=== PATIENT | female | born 1965 | race Caucasian/White ===

== ENCOUNTER → 2017-01-22 | Outpatient (CLI) | payer BC ==
[~2017-01-22] MED LIST: ACET-1256 PO; ASCO1CAP3 PO; ASPEC81 PO; ATOR-24 PO; CLC100 PO; CLS1 PO; DORZ2SOL20 OP; FLUT0.15 NAE; FLX10 PO; GLC850 PO; LATA0.5S OP; LOSA1TAB PO; MECL1TAB42 PO; MELO7.5T5 PO; OMEG10007 PO; ONDA4TAB46 PO; PSYL55.43 PO; SIMV20TA2 PO; SPIR50TA2 PO; VNTHFA/IN INH
== END | disposition home or self-care (01) ==
LOC: C.PATHSPEC 17:45
PROVIDERS: ATTEND Dermatology
DX: L91.8 Other hypertrophic disorders of the skin (principal)

== ENCOUNTER 2017-03-02 10:57 | Observation (INO) | payer BC, SELFPAY ==
[2017-02-25 09:24] VITALS: BMI 27.0
--- NOTE | 2017-02-25 09:55 | PAT Medication Instructions ---
Service Date February 25, 2017. Current Home Medication List Acetaminophen (Tylenol), 1,000 MG PO PRN Albuterol Hfa (Ventolin Hfa), 2-4 PUFFS INH Q6H Ascorbic Acid (Vitamin C), 500 MG PO QAM Aspirin Enteric Coated (Ecotrin Or Generic *), 81 MG PO QPM Atorvastatin (Lipitor), 40 MG PO HS Cyclobenzaprine Hcl (Flexeril *), 10 MG PO HS PRN for SPASMS Dorzolamide Hcl-Timolol Maleat (Cosopt Oph), 1 DROPS OP BID Fluticasone Propionate (Nasal) (Flonase Allergy Relief), 2 SPRAYS AGUSTIN QAM Latanoprost (Xalatan 0.005% Oph Rosita), 1 DROPS OP HS Losartan Potassium (Cozaar), 12.5 MG PO QAM Meclizine Hcl (Meclizine Hcl), 1 TAB PO PRN Meloxicam (Mobic), 7.5 MG PO QAM Metformin Hcl (Glucophage *), 850 MG PO BID Ondansetron Hcl (Zofran), 4 MG PO PRN\ PRN for Nausea Spironolactone (Aldactone), 50 MG PO QPM Medication Instructions For Your Scheduled Surgery Aspirin Enteric Coated (Ecotrin Or Generic *), 81 MG PO QPM (check with surgeon/ prescribing physician for instructions) Meloxicam (Mobic), 7.5 MG PO QAM (check with surgeon for instructions) - Hold the following medications 48 hours prior to surgery: Metformin Hcl (Glucophage *), 850 MG PO BID - Hold the following medications the morning of surgery: Losartan Potassium (Cozaar), 12.5 MG PO QAM Cyclobenzaprine Hcl (Flexeril *), 10 MG PO HS PRN for SPASMS Ascorbic Acid (Vitamin C), 500 MG PO QAM - Take the following medications the morning of surgery with a sip of water: Ondansetron Hcl (Zofran), 4 MG PO PRN\ PRN for Nausea (if needed) Meclizine Hcl (Meclizine Hcl), 1 TAB PO PRN (if needed) Fluticasone Propionate (Nasal) (Flonase Allergy Relief), 2 SPRAYS AGUSTIN QAM Dorzolamide Hcl-Timolol Maleat (Cosopt Oph), 1 DROPS OP BID Acetaminophen (Tylenol), 1,000 MG PO PRN (if needed) Albuterol Hfa (Ventolin Hfa), 2-4 PUFFS INH Q6H (bring with you to hospital morning of surgery; use if needed) - Take the following medications as scheduled the night before surgery: Spironolactone (Aldactone), 50 MG PO QPM Ondansetron Hcl (Zofran), 4 MG PO PRN\ PRN for Nausea (if needed) Meclizine Hcl (Meclizine Hcl), 1 TAB PO PRN (if needed) Latanoprost (Xalatan 0.005% Oph Rosita), 1 DROPS OP HS Dorzolamide Hcl-Timolol Maleat (Cosopt Oph), 1 DROPS OP BID Cyclobenzaprine Hcl (Flexeril *), 10 MG PO HS PRN for SPASMS (if needed) Atorvastatin (Lipitor), 40 MG PO HS Acetaminophen (Tylenol), 1,000 MG PO PRN (if needed) Albuterol Hfa (Ventolin Hfa), 2-4 PUFFS INH Q6H (if needed) If you have any questions please call us at [phone] or [phone] or [phone]
[~2017-03-02] VITALS: Ht 175.3 cm; Wt 85.9 kg
[2017-03-02] VITALS (10 sets, daily range): BP systolic 119–160; BP diastolic 70–83; PULSE 52–63; TEMP 36.4–37.6; O2SAT 97–100; BMI 27.0; BMI 28.0
[~2017-03-02 10:57] MED LIST changes: +CEFAZOLIN 2000 MG/60 ML D5W IV SCH; -CLC100 PO; -CLS1 PO; +ENOXAPARIN 40 MG/0.4 ML SYR SQ SCH; +LACTATED RINGER'S 1000ML 1,000 ML IV SCH; -OMEG10007 PO; -PSYL55.43 PO; -SIMV20TA2 PO
--- NOTE | 2017-03-02 11:36 | History & Physical Bridge Note ---
H&P Re-Evaluation Bridge Note: I have examined the patient, reviewed the History & Physical and in the interval since the performance of the History & Physical I have noted the following changes of clinical significance: No changes noted
[2017-03-02] MEDS ORDERED: PROPOFOL IV EMULSION 10 MG/ML 20 ML VIAL IV ONE (11:41)
[2017-03-02] MEDS ORDERED: DEXAMETHASONE SOD INJ 4 MG/ML VIAL ONE (11:41)
[2017-03-02] MEDS ORDERED: ONDANSETRON INJ 2 MG/ML 2 ML VIAL ONE ×2 (11:41→14:14)
[2017-03-02] MEDS ORDERED: LIDOCAINE HCL 2% 2 ML VIAL (20MG/ML) ONE (11:41)
[2017-03-02] MEDS ORDERED: HYDROmorphone INJ 2 MG/ML SYR/VIAL ONE (11:42)
[2017-03-02] MEDS ORDERED: MIDAZOLAM HCL 1 MG/ML 2ML VIAL ONE (11:42)
[2017-03-02] MEDS ORDERED: FENTANYL CITRATE INJ 50 MCG/1 ML 2 ML VIAL ONE (11:42)
[2017-03-02] MEDS ORDERED: LIDOCAINE/EPINEPHRINE 1% 20 ML VIAL ONE (12:07)
[2017-03-02] MEDS ORDERED: LIDOCAINE HCL 1% 20 ML VIAL ONE (12:07)
[2017-03-02] MEDS ORDERED: BUPIVACAINE 0.5 % 5 MG/1 ML MPF 30ML VIAL ONE (12:08)
[2017-03-02] MEDS ORDERED: EpINEphrine INJ 1MG/ML AMP 1 MG/ML AMP ONE (12:08)
[2017-03-02] MEDS ORDERED: ACETAMINOPHEN 1000 MG/100 ML IV IV ONE (12:28)
[2017-03-02] MEDS ORDERED: EpHEDrine SULFATE INJ 50 MG/ML AMP IV PRN (12:45)
[2017-03-02] MEDS ORDERED: ATROPINE SULFATE 0.1 MG/ML 5ML SYR IV PRN (12:45)
[2017-03-02] MEDS ORDERED: ONDANSETRON INJ 2 MG/ML 2 ML VIAL IV PRN ×2 (12:45→15:30)
[2017-03-02] MEDS ORDERED: PHENYLEPHRINE 100MCG/ML 5ML SYR IV PRN (12:45)
[2017-03-02] MEDS ORDERED: HYDROmorphone INJ 2 MG/ML SYR/VIAL IV PRN (12:45)
[2017-03-02] MEDS ORDERED: DiphenhydrAMINE HCL 50 MG/ML VIAL ONE (13:06)
[2017-03-02] MEDS ORDERED: ROCURONIUM BROMIDE 10 MG/ML 5 ML VIAL ONE (13:06)
[2017-03-02] MEDS ORDERED: BUPIVACAINE 0.25% 30 ML VIAL ONE ×3 (13:07→13:25)
--- NOTE | 2017-03-02 15:24 | [facility] Post Operative Brief Note ---
Immediate Operative Summary Operative Date Mar 02, 2017. Pre-Operative Diagnosis Abdominal Pannus Post-Operative Diagnosis same Procedure(s) Performed Panniculectomy Surgeon Natali Hyatt Card Tape Converter Operator Surgeon(s) Suzy Cunha PA-C Estimated Blood Loss 50 ML Findings small fascial weakness right abdomen Specimens NONE PER SURGEON Drains JPx2 Anesthesia GET Complication(s) None Disposition Recovery Room / PACU
[2017-03-02] MEDS ORDERED: MoRPHine SULFATE 2 MG/ML CARP IV PRN ×3 (15:30)
[2017-03-02] MEDS ORDERED: PROMETHAZINE HCL INJ 12.5 MG in SODIUM CHLORIDE 0.9% 50ML 50 ML IV PRN (15:30)
[2017-03-02] MEDS ORDERED: OXYCODONE/ACETAMINOPHEN 5-325 TAB PO PRN (15:30)
[2017-03-02] MEDS ORDERED: ACETAMINOPHEN 325 MG TAB PO PRN (15:30)
[2017-03-02] MEDS ORDERED: DiphenhydrAMINE HCL 50 MG/ML VIAL IV PRN (15:30)
[2017-03-02] MEDS ORDERED: CYCLOBENZAPRINE HCL 10 MG TAB PO PRN (15:30)
[2017-03-02] MEDS ORDERED: MECLIZINE HCL 12.5 MG TAB PO PRN (15:30)
[2017-03-02] MEDS ORDERED: OXAZEPAM 10MG CAP PO PRN (15:30)
[2017-03-02] MEDS ORDERED: IV FLUIDS COMPLETED PRN (16:00)
--- NOTE | 2017-03-02 16:03 | Anesthesiology Progress Note ---
Anesthesia Post Op Note Date & Time Mar 02, 2017 at 16:03 Vital Signs Pain Intensity: 4 Vital Signs Past 12 Hours Date Time Temp Pulse Resp B/P (MAP) Pulse Ox O2 Delivery O2 Flow Rate FiO2 03/02/17 15:45 56 13 153/77 99 Nasal Cannula 2 03/02/17 15:35 55 15 148/79 98 Nasal Cannula 2 03/02/17 15:26 36.7 56 14 165/81 98 Nasal Cannula 2 03/02/17 11:05 36.6 54 18 149/70 (96) 97 Room Air Notes Mental Status: alert / awake / arousable, participated in evaluation Pt Amnestic to Procedure: Yes Nausea / Vomiting: adequately controlled Pain: adequately controlled Airway Patency, RR, SpO2: stable & adequate BP & HR: stable & adequate Hydration State: stable & adequate Anesthetic Complications: no major complications apparent
[2017-03-02] MEDS: LACTATED RINGER'S 1000ML 1,000 ML IV SCH (17:42)
[2017-03-02] MEDS ORDERED: ALBUTEROL HFA 8 GM INHALER INH PRN (18:00)
[2017-03-02 18:25] LABS: PROTHROMBIN TIME (PATIENT) 10.7 SECONDS (9.0-12.0)
[2017-03-02 18:34] LABS: CREATININE 0.61 mg/dl (0.60-1.20)
[2017-03-02 18:39] LABS: HEMATOCRIT 42.1 % (37-47); MEAN CORPUSCULAR HEMOGLOBIN 30.6 pg (25-34); MEAN CORPUSCULAR HGB CONC 32.5 g/dl (32-36); MEAN PLATELET VOLUME 10.5 fL (7.4-10.4); PLATELET COUNT 210 K/uL (130-400); RED BLOOD COUNT 4.48 M/uL (4.2-5.4); WHITE BLOOD COUNT 14.03 K/uL (4.8-10.8)
[2017-03-02] MEDS: OXYCODONE/ACETAMINOPHEN 5-325 TAB PO PRN (19:54)
[2017-03-02] MEDS: CEFAZOLIN IV 2,000 MG in DEXTROSE 5% 50ML 50 ML IV SCH (20:18)
[2017-03-02] MEDS: DORZOLAMIDE/TIMOLOL 22.3/6.8MG/ML 10 ML BTL OP SCH (20:51)
[2017-03-02] MEDS ORDERED: ATORVASTATIN 20 MG TAB PO SCH (21:00)
[2017-03-02] MEDS ORDERED: LATANOPROST 0.005% OP SOLN 2.5 ML BTL OP SCH (21:00)
--- NOTE | 2017-03-02 21:52 | OPERATIVE REPORT ---
DATE OF OPERATION: 03/02/2017 PREOPERATIVE DIAGNOSIS: Overhanging abdominal panus. POSTOPERATIVE DIAGNOSIS: Same. PROCEDURE: Panniculectomy. SURGEON: Dr. Natali Hyatt. SUPERVISOR OPENING AND PICKING: Suzy Cunha PA-C ANESTHESIA: General. COMPLICATIONS: None. INDICATION FOR THE PROCEDURE: The patient is a 51-year-old female who presented to my office with concerns of lower abdominal skin flap with chronic skin irritation after losing 100 pounds over a 9 year period through diet and exercise. We discussed at that time whether to proceed with panniculectomy alone or abdominoplasty. Given her history of diabetes, both the patient and I were reluctant to perform a formal abdominoplasty and agreed that we would perform a panniculectomy with some degree of extension superiorly in the midline. We agreed that we would not perform plication of the rectus fascia. BRIEF DESCRIPTION OF THE PROCEDURE: The risks, benefits and alternatives of the procedure were explained to the patient who agreed and signed consent. She was identified and marked in the preoperative holding area. She was brought to the operating room where she was positioned supine and placed under anesthesia without incident. Rodriguez catheter was placed. Surgical site was prepped and draped sterilely. A time-out procedure was performed. The planned markings were reassessed. The inferior most aspect of the incision was made 6.5 cm superior to the vulvar commissure. The lower abdominal incision was then marked in extension over the ASIS bilaterally. 1% lidocaine with epinephrine was used to anesthetize the planned incision. A 15-blade scalpel made the incision into the dermis and the incision was deepened using electrocautery through dermis into subcutaneous fat, Ines's fascia, down to rectus fascia. Care was taken to avoid entering the inguinal canal. Dissection was then carried in the plane along the rectus fascia up to the umbilicus using electrocautery. A combination of suture ligation and electrocautery were used to achieve hemostasis. Once the lower abdominal skin as well as scar tissue from severe infection was dissected up to the umbilicus, an incision was made in the midline of the abdominal skin flap up to the level of the umbilicus. A 15-blade scalpel was used to circumscribe the umbilical stalk and this incision was carried through dermis using electrocautery down to rectus fascia. Superiorly about an additional 10 cm of dissection was performed using electrocautery in a narrow approximately 6 cm tunnel to facilitate inset of the umbilicus. At this point, the bed was flexed and the upper abdominal skin flap was tacked to the lower skin flap in the midline using 2-0 Vicryl suture. The abdominal skin flaps were marked for excision ensuring that wound closure would be possible. After the incision was marked, a 15-blade scalpel was used to make the incision and incision was deepened through dermis, subcutaneous fat, Ines's fascia using electrocautery. This was performed bilaterally. The umbilical position was marked and an inverted triangle type of incision in the midline between the anterior superior iliac spines. The tacking suture was temporarily released. Hemostasis was assured and the wound was irrigated using normal saline. The patient had concerns about the use of postoperative narcotic pain medications and therefore we elected to utilize On-Q pain pumps. These were placed through a percutaneous needle placement and catheters were drawn into the wound. The mons pubis was defatted using an Allis clamp and electrocautery to improve the abdominal wall contour. The upper abdominal skin flap was then advanced in the midline and tacked into place using 2-0 Vicryl suture. Wound closure was begun in a lateral to medial direction using 2-0 Vicryl deep dermal sutures, 2-0 Vicryl Ines's fascia sutures, 2-0 PDO running Quill suture in the superficial dermal plane and 3-0 Monocryl running subcuticular suture. Prior to wound closure, two 15 Yoruba Eze drains were brought out through separate stab incisions within the mons pubis. These were sutured into place using 3-0 nylon suture. Lastly, the umbilical incision was made using a 15-blade scalpel. The incision was deepened through dermis, subcutaneous fat using electrocautery until Ines's fascia was identified. A curved Marin scissors was used to penetrate Ines's fascia layer and the umbilicus was delivered through the incision. It was inset using 4-0 chromic interrupted half buried mattress suture. Throughout the procedure it appeared viable and was bleeding appropriately. The lower abdominal incision was dressed using Dermabond Prineo. Xeroform was packed into the umbilicus and placed around the drain sites. The On-Q pump was connected after the catheters had been flushed and dry dressings and an abdominal binder were placed. The patient was awakened and transferred to recovery room in satisfactory condition. I attest to the content of the Intraoperative Record and any orders documented therein. Any exception s are noted below.
[2017-03-03] MEDS: OXYCODONE/ACETAMINOPHEN 5-325 TAB PO PRN ×2 (00:01→06:19)
[2017-03-03 02:31] VITALS: BP 110/66; PULSE 55; TEMP 36.8; O2SAT 98
[2017-03-03] MEDS: CEFAZOLIN IV 2,000 MG in DEXTROSE 5% 50ML 50 ML IV SCH (04:46)
[2017-03-03 06:15] VITALS: BP 129/71; PULSE 61; TEMP 36.8; O2SAT 97
[2017-03-03] MEDS: LACTATED RINGER'S 1000ML 1,000 ML IV SCH (06:20)
[2017-03-03 07:39] VITALS: BP 124/78; PULSE 56; TEMP 36.7; O2SAT 93
--- NOTE | 2017-03-03 07:46 | Surgery Progress Note ---
Surgery Progress Note Date of Service Mar 03, 2017. Subjective Post OP Day: 1 + feeling well, + ambulating, + pain controlled, No complaints Objective Vital Signs: Date Time Temp Pulse Resp B/P (MAP) Pulse Ox O2 Delivery O2 Flow Rate FiO2 03/03/17 07:39 36.7 56 16 124/78 (93) 93 Room Air 03/03/17 06:15 36.8 61 18 129/71 (90) 97 Room Air 03/03/17 02:31 36.8 55 14 110/66 (81) 98 Nasal Cannula 1.0 03/02/17 23:34 36.5 54 17 130/75 (93) 99 Nasal Cannula 2.0 03/02/17 23:25 Nasal Cannula 2.0 03/02/17 21:51 36.4 52 20 119/70 (86) 98 Nasal Cannula 2.0 03/02/17 19:51 36.8 63 18 128/72 (90) 98 Nasal Cannula 1.0 03/02/17 18:35 36.7 58 18 160/74 (102) 99 Nasal Cannula 1.0 03/02/17 17:30 36.5 59 18 131/82 (98) 99 Nasal Cannula 1.0 03/02/17 17:00 36.5 58 18 137/83 (101) 99 Nasal Cannula 1.0 03/02/17 16:38 99 Nasal Cannula 2.0 03/02/17 16:34 36.7 54 18 145/82 (103) 99 Nasal Cannula 2.0 03/02/17 16:30 37.6 54 18 142/82 100 Nasal Cannula 2.0 03/02/17 16:30 100 Nasal Cannula 2.0 03/02/17 16:05 36.9 55 14 129/76 100 Nasal Cannula 2 03/02/17 15:55 58 15 139/83 100 Nasal Cannula 2 03/02/17 15:45 56 13 153/77 99 Nasal Cannula 2 03/02/17 15:35 55 15 148/79 98 Nasal Cannula 2 03/02/17 15:26 36.7 56 14 165/81 98 Nasal Cannula 2 03/02/17 11:05 36.6 54 18 149/70 (96) 97 Room Air Physical Exam: Eze drainage (sangineous ) General Appearance: WD/WN, no apparent distress Incision(s): clean, dry, intact, no erythema Laboratory Results: Results Past 24 Hours Test 03/02/17 11:16 03/02/17 15:45 03/02/17 17:58 03/02/17 18:34 Range/Units Bedside Glucose 109 96 70-90 mg/dl Prothrombin Time 10.7 9.0-12.0 SECONDS Prothromb Time International Ratio 1.0 0.9-1.1 Creatinine 0.61 0.60-1.20 mg/dl Est Creatinine Clear Calc Drug Dose 127.1 ml/min Estimated GFR () 120.0 Estimated GFR (Non- 103.5 White Blood Count 14.03 4.8-10.8 K/uL Red Blood Count 4.48 4.2-5.4 M/uL Hemoglobin 13.7 12.0-16.0 g/dL Hematocrit 42.1 37-47 % Mean Corpuscular Volume 94.0 80-100 fL Mean Corpuscular Hemoglobin 30.6 25-34 pg Mean Corpuscular Hemoglobin Concent 32.5 32-36 g/dl RDW Standard Deviation 45.8 36.4-46.3 fL RDW Coefficient of Variation 13.3 11.5-14.5 % Platelet Count 210 130-400 K/uL Mean Platelet Volume 10.5 7.4-10.4 fL Test 03/03/17 04:44 Range/Units Assessment & Plan s/p panniculectomy 1. doing well and pain controlled. reviewed post-op instructions. will d/c home today and patient has f/u in office
--- NOTE | 2017-03-03 07:50 | Discharge Instructions ---
Discharge Instructions Date of Service Mar 03, 2017. Admission Reason for Admission: Abdominal Pannus Discharge Discharge Diagnosis / Problem: abdominal pannus Discharge Goals Goal(s): Decrease discomfort Activity Recommendations Activity Limitations: per Instructions/Follow-up section ACTIVITY RECOMMENDATIONS: __Normal activities _x_No bending, lifting or straining __No driving __Driving allowed when you are off pain medications _x_Walking permitted __You should have help at home for ___ days DRESSINGS: __No dressings required _x_Keep dressings dry/in place until first office visit __Remove dressings ___ and leave dressings off __Apply ice ___ days __Remove dressings and reapply garment __Apply antibiotic ointment (Bacitracin, Neosporin, etc) to wounds 3-4 times/ day for 10 days BATHING: _x_Keep dressings dry _x_Sponge bathing permitted __Showering permitted _x_No swimming, hot tubs or soaking in a tub MEDICATIONS: Resume previous medications unless instructed otherwise by your surgeon. _x_Do not use aspirin, Motrin, Advil or Ibuprofen as these may promote bleeding. Please use Tylenol. _x_Prescription(s) provided: pain medication was provided at your last office visit OTHER INSTRUCTIONS: _x_Record drain output 2-3 times per day. Call the office when drainage (per drain) is less than 10cc/24 hours SPECIAL CARE INSTRUCTIONS: * It is normal to have a mild fever after surgery. If your temperature is higher than 101.5 degrees F, please call the office at [phone]. * Constipation is a typical side effect of pain medication. An over-the- counter stool softener will help relieve this. * Leaking around surgical drains may occur and should not cause concern. Sometimes these drains become clogged. If this happens, remove the bulb and milk the clot out of the tube, then replace the bulb. * Drainage from wounds after liposuction is normal and should be expected. Garments will become soiled. You should protect furniture and bedding. This drainage should mostly subside within 2-3 days. Leave garments in place unless instructed to remove them. * If you have unusual drainage from a wound or are concerned you have an infection or have any questions or concerns, please call the office at [phone]. FOLLOW UP VISIT: If not already scheduled, please call the office, , when you return home after surgery to schedule an appointment to be seen in _2__ days. . Current Hospital Diet Patient's current hospital diet: Regular Diet Discharge Diet Recommended Diet: Regular Diet Procedures Procedures Performed: Panniculectomy Pending Studies Studies pending at discharge: no Medical Emergencies . Who to Call and When: Medical Emergencies: If at any time you feel your situation is an emergency, please call 911 immediately. . Non-Emergent Contact Non-Emergency issues call your: Primary Care Provider, Surgeon . "Provider Documentation" section prepared by Suzy Cuhna. . VTE Core Measure Inpt VTE Proph given/why not?: Enoxaparin (Lovenox)SQ, SCD's [place] Drug Monitoring Program Search Results: no issues identified
--- NOTE | 2017-03-03 07:54 | Discharge Summary ---
Discharge Summary Date of Service Mar 03, 2017. Admission Date/Reason Mar 02, 2017 at 11:45 Abdominal Pannus. Discharge Date/Disposition Mar 03, 2017 Home Diagnosis Principal Diagnosis: abdominal pannus Secondary Diagnoses/Problems: dyslipidemia, diabetes Medication Reconciliation Continued Medications: Acetaminophen (Tylenol) 500 Mg Tab 1000 MG PO PRN, TAB Albuterol Hfa (Ventolin Hfa) 200 Puffs/41136 Mcg Aers 2-4 PUFFS INH Q6H, #1 INHALER Ascorbic Acid (Vitamin C) 500 Mg Cap 500 MG PO QAM Atorvastatin (Lipitor) 40 Mg Tab 40 MG PO HS, TAB Cyclobenzaprine Hcl (Flexeril *) 10 Mg Tab 10 MG PO HS PRN for SPASMS, 0 Refills Dorzolamide Hcl-Timolol Maleat (Cosopt Oph) 1 Rosita Rosita 1 DROPS OP BID, #10 ML 3 Refills Fluticasone Propionate (Nasal) (Flonase Allergy Relief) 50 Mcg/Act Spr 2 SPRAYS AGUSTIN QAM Latanoprost (Xalatan 0.005% Oph Rosita) 0.005 % Rosita 1 DROPS OP HS, #2.5 ML 3 Refills Losartan Potassium (Cozaar) 25 Mg Tab 12.5 MG PO QAM, TAB Meclizine Hcl (Meclizine Hcl) 25 Mg Tab 1 TAB PO PRN for 10 Days, TAB Metformin Hcl (Glucophage *) 850 Mg Tab 850 MG PO BID, 0 Refills Ondansetron Hcl (Zofran) 4 Mg Tab 4 MG PO PRN\ PRN for Nausea, TAB Spironolactone (Aldactone) 50 Mg Tab 50 MG PO QPM, 0 Refills Discontinued Medications: Aspirin Enteric Coated (Ecotrin Or Generic *) 81 Mg Ectab 81 MG PO QPM, 0 Refills Meloxicam (Mobic) 7.5 Mg Tab 7.5 MG PO QAM, TAB Admission Physical Exam As per Admitting History & Physical. Hospital Course Patient presented to same day surgery with history of abdominal pannus. She was taken to the OR and underwent panniculectomy. Two stella drains were placed intraoperatively. There were no intraoperative complications and she tolerated the procedure well. Patient was taken to recovery in stable condition. She had good pain control during the night, and on POD#1 she was ambulating in the halls and tolerating a regular diet. Her pain was well controlled. On exam, her VSS, incision CDI and drains had serosanguineous output. She was discharged home with instructions to follow up in the office. Discharge Instructions Please refer to the electronic Patient Visit Report (Discharge Instructions) for additional information.
[2017-03-03] MEDS ORDERED: SPIRONOLACTONE 100 MG TAB PO SCH (09:00)
[2017-03-03] MEDS ORDERED: LOSARTAN POTASSIUM 25 MG TAB PO SCH (09:00)
[2017-03-03] MEDS ORDERED: MULTIVITAMIN TAB PO SCH (09:00)
[2017-03-03] MEDS ORDERED: FLUTICASONE PROPIONATE NA SPR 16 GM BTL NAE SCH (09:00)
[2017-03-03 09:38] LABS: BASO % 0.3 %; BASO ABS # 0.03 K/uL (0-0.2); COMPLETE YES; EOS % 1.3 %; HEMATOCRIT 40.3 % (37-47); IG% 0.2 %; LYMPH % 12.8 %; MEAN CELL VOLUME 93.3 fL (80-100); MEAN CORPUSCULAR HEMOGLOBIN 30.1 pg (25-34); MEAN CORPUSCULAR HGB CONC 32.3 g/dl (32-36); MEAN PLATELET VOLUME 10.8 fL (7.4-10.4); NEUT % 79.4 %; PLATELET COUNT 218 K/uL (130-400); RED BLOOD COUNT 4.32 M/uL (4.2-5.4); WHITE BLOOD COUNT 9.35 K/uL (4.8-10.8)
[2017-03-03] MEDS: DORZOLAMIDE/TIMOLOL 22.3/6.8MG/ML 10 ML BTL OP SCH (09:49)
[2017-03-03 09:53] LABS: INR 1.1 (0.9-1.1); PARTIAL THROMBOPLASTIN RATIO 1.1; PROTHROMBIN TIME (PATIENT) 11.3 SECONDS (9.0-12.0)
--- NOTE | 2017-03-03 09:58 | Anesthesiology Progress Note ---
Anesthesia Post Op Note Date & Time Mar 03, 2017 at 09:57 Vital Signs Pain Intensity: 4.0 Vital Signs Past 12 Hours Date Time Temp Pulse Resp B/P (MAP) Pulse Ox O2 Delivery O2 Flow Rate FiO2 03/03/17 07:39 36.7 56 16 124/78 (93) 93 Room Air 03/03/17 07:15 Room Air 03/03/17 06:15 36.8 61 18 129/71 (90) 97 Room Air 03/03/17 02:31 36.8 55 14 110/66 (81) 98 Nasal Cannula 1.0 03/02/17 23:34 36.5 54 17 130/75 (93) 99 Nasal Cannula 2.0 03/02/17 23:25 Nasal Cannula 2.0 Notes Mental Status: alert / awake / arousable, participated in evaluation Pt Amnestic to Procedure: Yes Nausea / Vomiting: adequately controlled Pain: adequately controlled Airway Patency, RR, SpO2: stable & adequate BP & HR: stable & adequate Hydration State: stable & adequate Anesthetic Complications: no major complications apparent
[2017-03-03 10:12] LABS: CALCIUM 8.5 mg/dl (8.5-10.1); CREATININE 0.71 mg/dl (0.60-1.20); POTASSIUM 3.8 mmol/L (3.5-5.1)
[2017-03-03 11:16] VITALS: BP 124/75; PULSE 60; TEMP 36.6; O2SAT 99
[2017-03-03 11:56] VITALS: BP 124/75; PULSE 60; TEMP 36.6; O2SAT 99
[2017-03-03] MEDS ORDERED: ENOXAPARIN 40 MG/0.4 ML SYR SQ SCH (12:00)
[2017-03-03 13:10] VITALS: Ht 175.3 cm; Wt 85.9 kg
== END 2017-03-03 14:00 | disposition home or self-care (01) ==
LOC: C.ACU 10:57 → C.MSW 11:45 → ENRESERV 15:55
PROVIDERS: ADMIT Plastic Surgery; ATTEND Plastic Surgery
DX: E65 Localized adiposity (principal); E78.5 Hyperlipidemia, unspecified; M19.90 Unspecified osteoarthritis, unspecified site; E11.9 Type 2 diabetes mellitus without complications; E78.00 Pure hypercholesterolemia, unspecified; I10 Essential (primary) hypertension; Z78.9 Other specified health status; Z79.82 Long term (current) use of aspirin; Z82.49 Family history of ischemic heart disease and other diseases of the circulatory system; Z83.6 Family history of other diseases of the respiratory system